=== PATIENT | male | born 1985 | race Caucasian/White ===

== ENCOUNTER 2020-06-07 12:46 | Emergency (ER) | payer MEDICAID ==
[~2020-06-07] VITALS: Ht 165.1 cm; Wt 66.0 kg
[2020-06-07] MEDS ORDERED: IBUPROFEN 600MG TABLET PO ONE (13:30)
[2020-06-07] MEDS ORDERED: IBUPROFEN 400MG TABLET PO ONE (13:45)
[2020-06-07] MEDS ORDERED: IBUP-2028 MT (14:31)
[2020-06-07 14:49] VITALS: BP 130/72
== END 2020-06-07 14:52 | disposition home or self-care (01) ==
LOC: ER 12:46
DX: S43.401A Unspecified sprain of right shoulder joint, initial encounter (principal); X58.XXXA Exposure to other specified factors, initial encounter; Y93.89 Activity, other specified; Y92.89 Other specified places as the place of occurrence of the external cause
CPT/HCPCS: 73030; 93005; 99283